=== PATIENT | male | born 1980 | race Caucasian/White ===

== ENCOUNTER 2019-07-10 18:13 | Emergency (ER) | payer OTHER ==
[2019-07-10 18:58] LABS: BASOPHILS % (AUTO) 0.7 %; EOSINOPHILS # (AUTO) 0.2 10^3/uL (0.0-0.7); EOSINOPHILS % (AUTO) 2.9 %; HGB - HEMOGLOBIN 13.6 g/dL (14.0-18.0); LYMPHOCYTES # (AUTO) 2.5 10^3/uL (1.5-3.5); LYMPHOCYTES % (AUTO) 46.1 %; MEAN CORPUSCULAR HEMOGLOBIN 30.2 pg (27.0-31.0); MEAN CORPUSCULAR HGB CONC 34.1 g/dL (32.0-36.0); MEAN CORPUSCULAR VOLUME 88.7 fL (80.0-94.0); MEAN PLATELET VOLUME 10.1 fL (7.4-11.4); MONOCYTES # (AUTO) 0.4 10^3/uL (0.0-1.0); MONOCYTES % (AUTO) 7.2 %; NEUTROPHILS # (AUTO) 2.3 10^3/uL (1.5-6.6); NEUTROPHILS % (AUTO) 42.9 %; PLT - PLATELET COUNT 192 10^3/uL (130-450); RED CELL DISTRIBUTION WIDTH 13.8 % (12.0-15.0); WHITE BLOOD COUNT 5.4 x10^3/uL (4.8-10.8)
[2019-07-10 19:11] LABS: ALBUMIN 4.5 g/dL (3.2-5.5); ALBUMIN/GLOBULIN RATIO 1.9 (1.0-2.2); BILIRUBIN,TOTAL 0.5 mg/dL (0.2-1.0); CALCIUM 9.1 mg/dL (8.5-10.3); CREATININE 0.8 mg/dL (0.6-1.2); TOTAL PROTEIN 6.9 g/dL (6.7-8.2)
[2019-07-10] MEDS ORDERED: diphenhydrAMINE INJ 50 MG/ML VIAL IVP STA (19:43)
[2019-07-10] MEDS ORDERED: METOCLOPRAMIDE 10 MG/2 ML VIAL IVP STA (19:43)
--- NOTE | 2019-07-10 19:49 | ED Physician Documentation ---
PD HPI FOCAL NEURO - Stated complaint Stated Complaint: CP/LEFT ARM PAIN/SOA - Chief complaint Chief Complaint: Cardiac - History obtained from History obtained from: Patient - History of Present Illness Timing - onset: Today (Healthy 38-year-old gentleman with second-degree family history of coronary disease. No history of migraines or other neurologic problems. He had a headache that woke him up this morning that was severe and somewhat atypical. He does not usually get headaches but it was not the worst headache of his life. This evening while driving he developed left-sided numbness that started in the arm and the leg. It was associated with very focal mild left-sided chest pain that did not radiate and then developed numbness of the left face. The chest pain is pretty much gone but the numbness persists. He says he has no headache at this point. There is no weakness associated with this.) Review of Systems Ten Systems: 10 systems reviewed and negative Constitutional: denies: Fever, Chills Cardiac: reports: Chest pain / pressure. denies: Palpitations Respiratory: denies: Dyspnea, Cough GI: denies: Abdominal Pain, Nausea, Vomiting PD PAST MEDICAL HISTORY - Past Medical History Cardiovascular: None Respiratory: None Endocrine/Autoimmune: None GI: None : None HEENT: Chronic vision loss Psych: None Musculoskeletal: None Derm: None - Past Surgical History Ortho: Other HEENT: Tonsil/Adenoidectomy - Present Medications Home Medications: Ambulatory Orders Medication Instructions Recorded Confirmed No Known Home Medications 07/10/19 07/10/19 - Allergies Allergies/Adverse Reactions: Allergies Allergy/AdvReac Type Severity Reaction Status Date / Time morphine Allergy Hives Verified 07/10/19 18:29 - Social History Does the pt smoke?: No Smoking Status: Never smoker PD ED PE NORMAL - Vitals Vital signs reviewed: Yes - General General: Alert and oriented X 3, No acute distress - HEENT HEENT: PERRL, EOMI - Neck Neck: Supple, no meningeal sign, No bony TTP - Cardiac Cardiac: RRR, No murmur - Respiratory Respiratory: No respiratory distress, Clear bilaterally - Abdomen Abdomen: Normal bowel sounds, Soft, Non tender - Back Back: No CVA TTP, No spinal TTP - Extremities Extremities: No deformity, No tenderness to palpate, No edema, No calf tenderness / cord - Neuro Neuro: Alert and oriented X 3, No motor deficit, Normal speech Eye Opening: Spontaneous Motor: Obeys Commands Verbal: Oriented GCS Score: 15 NIHSS - Time Time: 19:40 - Level of Consciousness Level of consciousness: (0) Alert, Keenly responsive LOC Questions: (0) Answers both Q's correct LOC Commands: (0) Performs both correctly - Gaze Best Gaze: (0) Normal - Visual Visual: (0) No loss - Facial Palsy Facial Palsy: (0) Normal, symmetrical movement - Motor Arms (both separate) Motor Arm (right): (0) No drift Motor Arm (left): (0) No drift - Motor Legs (both separate) Motor Leg (right): (0) No drift Motor Leg (left): (0) No drift - Limb Ataxia Limb Ataxia: (0) Absent - Sensory Sensory: (1) Xnhg-oh-[id number] loss (He has hemisensory loss on the left. It is most profound in the left hand where he can barely feel the pin she is nailbed. He notes 60% sensation on the left leg compared to the right, it is also present on the trunk and face.) - Best Language Best Language: (0) No aphasia - Dysarthria Dysarthria: (0) Normal - Extinction and Inattention (formally neg Extinction and inattention: (0) No abnormality - Total Score/Results Total Score/Result: 1 Results - Vitals Vitals: Vital Signs - 24 hr 07/10/19 07/10/19 07/10/19 18:26 18:47 20:43 Temperature 36.8 C Heart Rate 66 64 63 Respiratory 18 13 20 Rate Blood Pressure 123/83 H 124/78 132/80 H O2 Saturation 99 99 98 07/10/19 07/11/19 07/11/19 23:01 00:00 02:00 Temperature Heart Rate 57 L 57 L 56 L Respiratory 16 10 L 12 Rate Blood Pressure 112/78 110/80 110/79 O2 Saturation 97 100 95 Oxygen O2 Source Room air - EKG (time done) 1831 Rate: Rate (enter#) (64) Rhythm: NSR [place]: Normal Intervals: Normal ND QRS: Normal Ischemia: Normal ST segments Computer interpretation: Agree with computer - Labs Labs: Laboratory Tests 07/10/19 07/10/19 07/10/19 18:36 18:36 18:36 WBC 5.4 RBC 4.50 L Hgb 13.6 L Hct 39.9 L MCV 88.7 MCH 30.2 MCHC 34.1 RDW 13.8 Plt Count 192 MPV 10.1 Neut # (Auto) 2.3 Lymph # (Auto) 2.5 [place] # (Auto) 0.4 Eos # (Auto) 0.2 Baso # (Auto) 0.0 Absolute Nucleated RBC 0.00 Nucleated RBC % 0.0 Sodium 142 Potassium 3.9 Chloride 105 Carbon Dioxide 30 Anion Gap 7.0 BUN 20 Creatinine 0.8 Estimated GFR (MDRD) 109 Glucose 92 Calcium 9.1 Total Bilirubin 0.5 AST 23 ALT 25 Alkaline Phosphatase 45 Troponin I High Sens < 2.3 L Total Protein 6.9 Albumin 4.5 Globulin 2.4 Albumin/Globulin Ratio 1.9 Lipase 29 - Rads (name of study) CTA head and neck Radiology: EMP read contemporaneously PD MEDICAL DECISION MAKING - ED course ED course: 38-year-old gentleman with left-sided numbness today associated with some chest pain. Cardiac work-up was negative. Angiography of the head and neck were negative. Migrainous etiology is certainly considered and Reglan and Benadryl IV were trialed. He had some incomplete improvement after this. Given the ongoing persistent neurologic symptoms of numbness on the left side transfer to a facility capable of urgent neurologic consultation and MRI was entertained and the patient was agreeable. They requested [facility], they were called at around 10:05 PM. It turned that he had [facility], but he has a PPO plan through [facility]. I confirmed with Dr. Lynch at their E pro line that he can go to [place] and they were called at 1030. They called me back around 10:50 PM, they do not have any beds at [place] [facility]. Called back to [facility], but in the interim the pt's called directly, and was told they did have beds, so I called [facility] again and they arranged for a bed at and was accepted by Dr Ana Edge there and COBRAs were completed. He is stable for transport to higher level of care for inpt neuro consult and urgent MRI for which we do not have the capability. Departure - Departure Disposition: 02 Transfer Acute Care Hosp Clinical Impression: Atypical chest pain, Left sided numbness, Headache Condition: Stable Discharge Date/Time: 07/11/19 03:30
[2019-07-10] MEDS ORDERED: IOVERSOL 320 100 ML VIAL IVP ONE ×2 (19:55→20:33)
--- NOTE | 2019-07-10 21:24 | CT Report ---
Reason: Left numbness Procedure Date: 07/10/2019 Accession Number: [id number] / [id number] Procedure: CT - ANGIO NECK W CPT Code: FULL RESULT: EXAM: CT ANGIOGRAM NECK EXAM DATE: 07/10/2019 08:30 PM. CLINICAL HISTORY: 38-year-old presenting with left-sided numbness and nausea that began at 1830 hrs. COMPARISON: CTA head 07/10/2019. TECHNIQUE: Routine axial helical imaging was performed from the skull base through the aortic arch. Reconstructions: Routine multiplanar 3D MIP reconstructions. IV Contrast: 100 mL OPTI 320. Evaluation of arterial stenosis is based on a NASCET method of measurement. In accordance with CT protocol optimization, one or more of the following dose reduction techniques were utilized for this exam: automated exposure control, adjustment of mA and/or KV based on patient size, or use of iterative reconstructive technique. FINDINGS: Right Carotid: The common carotid, internal carotid, and external carotid arteries are widely patent. No dissection, significant atherosclerotic plaque, or calcification identified. Left Carotid: The common carotid, internal carotid, and external carotid arteries are widely patent. No dissection, significant atherosclerotic plaque, or calcification identified. Vertebrals: The vertebrobasilar system shows no stenoses. Intracranial Circulation: Normal. No stenoses or aneurysms of the visualized vessels. Other: The bones, soft tissues, and lung apices are within normal limits. IMPRESSION: Normal neck CT angiogram. No hemodynamically significant stenoses. RADIA
--- NOTE | 2019-07-10 21:27 | CT Report ---
Reason: left numbness after headache Procedure Date: 07/10/2019 Accession Number: [id number] / [id number] Procedure: CT - ANGIO HEAD W/WO CPT Code: FULL RESULT: EXAM: CT ANGIOGRAM HEAD. CT SCAN OF THE HEAD WITHOUT AND WITH CONTRAST. EXAM DATE: 07/10/2019 08:28 PM CLINICAL HISTORY: Left numbness after headache. COMPARISON: NECK ANGIO 07/10/2019 8:10 PM. TECHNIQUE: - CT Scan Head: Using a multidetector scanner, axial images were acquired from the foramen magnum to the skull vertex prior to and following contrast administration. - CT Angiogram: Using a multidetector scanner, high-resolution axial images were acquired from the skull base through vertex following rapid infusion of intravenous contrast. Reformats: Multiplanar MIP reformats were reconstructed. Nascet criteria used for stenosis measurement. IV Contrast: OPTI 320 100ML. In accordance with CT protocol optimization, one or more of the following dose reduction techniques were utilized for this exam: automated exposure control, adjustment of mA and/or KV based on patient size, or use of iterative reconstructive technique. Findings: Relevant images are indicated (image number, series number). Enhanced CT head: There is no hemorrhage, mass or midline shift. There is no cortical atrophy, ventricular enlargement, white matter disease, no acute arterial thrombosis of the major arteries. Orbital contents negative. Paranasal sinuses, skull unremarkable. Postcontrast CT head: No abnormal enhancement of the brain, meninges. CT angiogram head: Left ICA: Widely patent. Right ICA: Widely patent. Posterior circulation: Patent distal bilateral vertebral arteries, basilar artery, patent bilateral PEDIATRIC MEDICAL ASSISTANT distribution. Small right PCOM. Patent major draining veins. Impressions: Unenhanced CT head: 1. Negative. ASPECTS Score equals 10. Postcontrast CT head: 1. Negative. CT angiogram head: 1. Patent major arteries of the brain, with normal anatomical variability as described. No aneurysm, dissection, stenosis, AVM. 2. Patent major veins. RADIA
[2019-07-10] MEDS ORDERED: MAG HYDROX/AL HYDROX/SIMETH 30 ML UDC PO STA (22:02)
[2019-07-10] MEDS ORDERED: ASPIRIN CHEW 81 MG TABLET PO STA (22:02)
[2019-07-11 02:46] VITALS: BP 110/79
== END 2019-07-11 03:30 | disposition short-term general hospital (02) ==
LOC: ED 18:13
DX: R07.89 Other chest pain (principal); R20.0 Anesthesia of skin; R51 Headache; Z82.49 Family history of ischemic heart disease and other diseases of the circulatory system
CPT/HCPCS: 36415; 70496; 70498; 80053; 83690; 84484; 85025; 93005; 96374; 96375; 99284; 99285; A9270; J1200; J2765; Q9967

== ENCOUNTER 2022-01-09 10:05 | Outpatient (CLI) | payer OTHER ==
--- NOTE | 2022-01-09 11:02 | XRAY Report ---
PROCEDURE: Wrist 2 View LT INDICATIONS: WRIST STRAIN TECHNIQUE: 2 views of the wrist were acquired. COMPARISON: None FINDINGS: Bones: No fractures or dislocations. No suspicious bony lesions. Scaphoid view: Not requested Soft tissues: No suspicious soft tissue calcifications. IMPRESSION: No acute fracture. No osseous lesion. If symptoms and/or clinical suspicion for pathology continue, f urther assessment with repeat plain films, or advanced imaging (e.g., CT, MRI, or bone scan) is recom mended for further assessment. Reviewed by: Rashmi López MD on 01/09/2022 11:01 AM PST Approved by: Rashmi López MD on 01/09/2022 11:01 AM PST Station ID: [id number]
== END 2022-01-09 10:06 | disposition home or self-care (01) ==
LOC: DI.S 10:05
PROVIDERS: ATTEND Internal Medicine
DX: S66.912A Strain of unspecified muscle, fascia and tendon at wrist and hand level, left hand, initial encounter (principal)